=== PATIENT | female | born 1990 | race Hispanic/Latino ===

== ENCOUNTER 2019-06-16 20:32 | Emergency (ER) | payer OTHER, SELFPAY ==
--- NOTE | 2019-06-16 21:22 | RAD ---
XR Hand Lt 3 View STANDARD HISTORY: Left hand injury COMPARISON: None. FINDINGS: There are no signs of fracture or dislocation. 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 IMPRESSION: No fracture.
--- NOTE | 2019-06-16 21:29 | RAD ---
XR Hand Rt 3 View STANDARD HISTORY: Right hand injury COMPARISON: None. FINDINGS: There are no signs of fracture or dislocation. 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 IMPRESSION: No acute findings.
== END 2019-06-16 21:35 | disposition home or self-care (01) ==
LOC: ERS 20:32
DX: S60.042A Contusion of left ring finger without damage to nail, initial encounter (principal); S60.031A Contusion of right middle finger without damage to nail, initial encounter; F41.9 Anxiety disorder, unspecified; F32.9 Major depressive disorder, single episode, unspecified; X50.1XXA Overexertion from prolonged static or awkward postures, initial encounter

== ENCOUNTER 2019-11-09 00:12 | Emergency (ER) | payer SELFPAY ==
[2019-11-09] MEDS ORDERED: Adacel (T-DAP) 0.5 ML SYRINGE ONE (02:12)
[2019-11-09] MEDS ORDERED: Acetaminophen 500 MG TAB ONE (02:18)
--- NOTE | 2019-11-09 07:35 | CT ---
PRELIMINARY REPORT/DIRECT RADIOLOGY/EMERGENCY AFTER HOURS PROCEDURE EXAM: CT Head Without Intravenous Contrast. CLINICAL HISTORY: ER 12...Drinking, fell face first. Loose teeth. Bleeding from mouth. Denies LOC, on e tooth just fell out. TECHNIQUE: Axial computed tomography images of the head/brain without intravenous contrast. COMPARISON:CT cervical spine and CT maxillofacial 11/09/2019 FINDINGS: BRAIN: No acute intraparenchymal hemorrhage. No mass lesion. No CT evidence for acute territorial inf arct. No midline shift or extra-axial collection. VENTRICLES: No hydrocephalus. ORBITS: The orbits are unremarkable. SINUSES AND MASTOIDS: The paranasal sinuses and mastoid air cells are clear. SOFT TISSUES: No significant facial or scalp soft tissue swelling evident. No radiopaque foreign body is seen. BONES: No acute skull fracture. IMPRESSION: No acute intracranial abnormality. ELECTRONICALLY SIGNED BY: Jonatan Villaseñor M.D. Nov 09, 2019 1:34:59 AM BUILDING ECONOMIST FINAL REPORT BRAIN CT WITHOUT IV CONTRAST: EMERGENT AFTER HOURS EXAM TIME: 1:08 AM. DATE: 11/09/2019. COMPARISON: 03/11/2017. FINDINGS/IMPRESSION: No mass or bleed or other acute process. This report is in agreement with the preliminary report. POS: [facility]
--- NOTE | 2019-11-09 07:45 | CT ---
PRELIMINARY REPORT/DIRECT RADIOLOGY/EMERGENCY AFTER HOURS PROCEDURE EXAM: CT Cervical Spine Without Intravenous Contrast. CLINICAL HISTORY: ER 12...Drinking, fell face first. Loose teeth. Bleeding from mouth. Denies LOC, on e tooth just fell out. TECHNIQUE: Axial computed tomography images of the cervical spine without intravenous contrast. Sagit angel and coronal reformations performed. COMPARISON: CT head and CT maxillofacial to 11/09/2019. FINDINGS: BONES: No acute fracture or focal osseous lesion. Bony alignment is anatomic. Straightening of the cervical spinal curvature. DISCS / DEGENERATIVE CHANGES: No significant disc or facet degeneration. No significant central canal or neural foraminal stenosis. SOFT TISSUES: No prevertebral soft tissue swelling. No apical pneumothorax. IMPRESSION: No acute cervical spine abnormality. Straightening the cervical spinal curvature which is likely positional but can be seen in spasm. ELECTRONICALLY SIGNED BY: Jonatan Villaseñor M.D. Nov 09, 2019 1:40:50 AM SYSTEM VALIDATION ENGINEER FINAL REPORT CERVICAL SPINE CT SCAN WITHOUT IV CONTRAST: EMERGENCY AFTER HOURS EXAM TIME: 1:03 AM. DATE: 11/09/2019. FINDINGS/IMPRESSION: Mild flexion of the cervical spine. No fracture or dislocation. This report is in agreement with the preliminary report. POS: [facility]
--- NOTE | 2019-11-09 07:48 | CT ---
PRELIMINARY REPORT/DIRECT RADIOLOGY/EMERGENCY AFTER HOURS PROCEDURE EXAM: CT Maxillofacial Without Intravenous Contrast. CLINICAL HISTORY: ER 12...Drinking, fell face first. Loose teeth. Bleeding from mouth. Denies LOC, on e tooth just fell out. TECHNIQUE: Axial computed tomography images of the face without intravenous contrast. Sagittal and co kenn reformations performed. CONTRAST: Without COMPARISON: CT head and CT cervical spine 11/09/2019. FINDINGS: BONES: No acute fracture or focal osseous lesion. The mandible is intact. Several jagged anterior man dibular teeth. SOFT TISSUES: The paranasal soft tissues are unremarkable except for swelling of the nose. SINUSES: The sinuses are clear. ORBITS: The orbits are normal. No retrobulbar hematoma or mass. IMPRESSION: 1. No evidence of acute facial fracture. 2. Several jagged anterior mandibular teeth which may indicate partial fracture not extending into t he mandible. Correlate with findings on physical exam. ELECTRONICALLY SIGNED BY: Jonatan Villaseñor M.D. Nov 09, 2019 1:39:09 AM ORDER ENTRY ADMINISTRATOR FINAL REPORT FACIAL BONE CT SCAN WITHOUT IV CONTRAST: EMERGENCY AFTER HOURS EXAM TIME: 1:11 AM. DATE: 11/09/2019. COMPARISON: 03/11/2017. FINDINGS/IMPRESSION: No evidence for significant acute facial bone fracture. This report is in agreement with the preliminary report. POS: [facility]
--- NOTE | 2019-11-09 11:19 | RAD ---
Exam: XR Ankle Lt 3 View STANDARD HISTORY: Injury after a fall. COMPARISON: None FINDINGS: No acute fracture, dislocation, or other acute osseous abnormality is identified. IMPRESSION: No acute osseous abnormality is identified.
--- NOTE | 2019-11-09 11:21 | RAD ---
Exam: XR Wrist 3 Lt View STANDARD HISTORY: Injury to left wrist post fall. COMPARISON: None FINDINGS: No acute fracture, dislocation, or other acute osseous abnormality is identified. IMPRESSION: No acute osseous abnormalities to 5. If there is persistent pain or clinical concern for fracture of the navicular bone, follow-up imaging left wrist is recommended after conservative management in 4-7 days to exclude a radiographically occult fracture.
== END 2019-11-09 03:25 | disposition home or self-care (01) ==
LOC: ERS 00:12
DX: S02.5XXA Fracture of tooth (traumatic), initial encounter for closed fracture (principal); S00.531A Contusion of lip, initial encounter; S90.519A Abrasion, unspecified ankle, initial encounter; S00.31XA Abrasion of nose, initial encounter; S00.81XA Abrasion of other part of head, initial encounter; F10.129 Alcohol abuse with intoxication, unspecified; W19.XXXA Unspecified fall, initial encounter
CPT/HCPCS: 70450; 70486; 72125; 90471; 90715